=== PATIENT | female | born 1995 | race African-American/Black ===

== ENCOUNTER 2016-10-10 20:41 | Emergency (ER) | payer MEDICAID, SELFPAY ==
[~2016-10-10] VITALS: Ht 157.5 cm; Wt 77.1 kg
[2016-10-10 20:42] VITALS: BP 142/90
== END 2016-10-11 01:13 | disposition left against medical advice (07) ==
LOC: M ED 23:13
DX: Z53.21 Procedure and treatment not carried out due to patient leaving prior to being seen by health care provider (principal)

== ENCOUNTER → 2018-12-21 | Outpatient (REF) | payer BC | LOC: M SFHCLERA 12:34 | PROVIDERS: ATTEND Physician Assistant | DX: J02.9 Acute pharyngitis, unspecified (principal) ==

== ENCOUNTER → 2019-04-24 | Outpatient (REF) | payer BC ==
[2019-04-24 21:55] LABS: CHLAMYDIA DNA AMPLIFICATION NEGATIVE (NEGATIVE); GC DNA AMPLIFICATION NEGATIVE (NEGATIVE)
== END ==
LOC: M SFHCLERA 17:21
PROVIDERS: ATTEND Nurse Practitioner Family
DX: R30.0 Dysuria (principal)

== ENCOUNTER → 2019-04-27 | Outpatient (REF) | payer BC | LOC: M SFHCLERA 19:22 | PROVIDERS: ATTEND Nurse Practitioner Family | DX: N94.9 Unspecified condition associated with female genital organs and menstrual cycle (principal); R30.0 Dysuria ==

== ENCOUNTER → 2020-05-02 | Outpatient (CLI) | payer SELFPAY | LOC: M LABSMTC 13:37 | PROVIDERS: ATTEND Pediatrics | DX: Z20.828 Contact with and (suspected) exposure to other viral communicable diseases (principal) ==

== ENCOUNTER → 2020-05-18 | Outpatient (CLI) | payer SELFPAY | LOC: M LABSMTC 12:20 | PROVIDERS: ATTEND Pediatrics | DX: Z20.828 Contact with and (suspected) exposure to other viral communicable diseases (principal) ==